=== PATIENT | male | born 2000 | race Caucasian/White ===

== ENCOUNTER 2020-11-26 08:37 | Emergency (ER) | payer OTHER ==
[~2020-11-26 08:37] MED LIST: CLARITIN10 MG PO; PHENERGAN12.5 M1 PO; SINGULAIR10 MG PO; VENTOLIN HFA18 GM INH
[2020-11-26 09:09] LABS: BASOPHIL 0.4 % (0-2); EOSINOPHIL 1.5 % (0-5); HCT 41.6 % (42.0-52.0); HGB 14.8 g/dl (13.2-18.0); LYMPHOCYTE 30.5 % (15-48); MCH 30.2 pg (25.0-31.0); MCHC 35.6 g/dL (32.0-36.0); MCV 84.9 fL (78.0-100.0); MONOCYTE 6.4 % (0-12); MPV 12.1 fL (6.0-9.5); NEUTROPHIL 61.1 % (41-80); NRBC 0; PLT 127 K/uL (150-400); RDW 12.7 % (11.5-14.0); WBC 7.4 K/uL (4.0-10.5)
[2020-11-26] MEDS ORDERED: ZOLOFT50 M1 PO (09:09)
[2020-11-26 10:04] LABS: ALBUMIN 4.9 g/dL (3.4-5.0); BILIRUBIN - TOTAL 1.6 mg/dL (0.2-1.0); BUN/CREAT RATIO (CALC) 13.3 RATIO; CREATININE 0.75 mg/dL (0.67-1.17); GLOBULIN (CALCULATION) 2.8 g/dL; MAGNESIUM 1.9 mg/dL (1.8-2.4); POTASSIUM 3.4 mmol/L (3.5-5.1); TOTAL PROTEIN 7.7 g/dL (6.4-8.2)
[2020-11-26 10:06] LABS: BILIRUBIN NEGATIVE (NEGATIVE); BLOOD NEGATIVE Ery/uL (NEGATIVE); CLARITY CLEAR (CLEAR); COLOR YELLOW (YELLOW); GLUCOSE (U) NORMAL (NORMAL); LEUKOCYTES NEGATIVE Leu/uL (NEGATIVE); NITRITE NEGATIVE (NEGATIVE); PROTEIN NEGATIVE (NEGATIVE); UROBILINOGEN 0.2 mg/dL (0.2-1.0); pH 7.5 (5.0-9.0)
[2020-11-26] MEDS ORDERED: CARAFATE1 G1 PO (11:26)
[2020-11-26] MEDS ORDERED: ONDANSETRON ODT4 MG PO (11:26)
[2020-11-26] MEDS ORDERED: PROTONIX 40MG T40 MG PO (11:26)
[2020-11-26] MEDS ORDERED: NORCO 5-325 TA1 EACH PO (11:26)
== END 2020-11-26 11:52 | disposition home or self-care (01) ==
LOC: FER 08:37
PROVIDERS: Emergency Medicine
DX: K21.00 Gastro-esophageal reflux disease with esophagitis, without bleeding (principal); F17.200 Nicotine dependence, unspecified, uncomplicated; Z90.49 Acquired absence of other specified parts of digestive tract; Z79.899 Other long term (current) drug therapy
CPT/HCPCS: 36415; 80053; 81003; 83690; 83735; 84145; 85025; J1170; J2405; J7030; Q9967